=== PATIENT | female | born 1950 | race Caucasian/White ===

== ENCOUNTER 2019-02-24 15:07 | Outpatient (CLI) | payer MEDICARE, BC ==
[~2019-02-24 15:07] MED LIST: HYDR-4383 PO; ONDA4TAB6 PO
== END 2019-02-24 16:14 | disposition home or self-care (01) ==
LOC: ORTHO 15:07
PROVIDERS: ATTEND Orthopaedic Surgery
DX: S52.572D Other intraarticular fracture of lower end of left radius, subsequent encounter for closed fracture with routine healing (principal); S52.612D Displaced fracture of left ulna styloid process, subsequent encounter for closed fracture with routine healing; G56.02 Carpal tunnel syndrome, left upper limb; X58.XXXD Exposure to other specified factors, subsequent encounter
CPT/HCPCS: 73110; G0463

== ENCOUNTER 2019-03-24 15:23 | Outpatient (CLI) | payer MEDICARE, BC | END 2019-03-24 16:30 | disposition home or self-care (01) | LOC: ORTHO 15:23 | PROVIDERS: ATTEND Orthopaedic Surgery | DX: S52.592D Other fractures of lower end of left radius, subsequent encounter for closed fracture with routine healing (principal); X58.XXXD Exposure to other specified factors, subsequent encounter | CPT/HCPCS: 73110; G0463 ==

== ENCOUNTER 2019-04-21 15:00 | Outpatient (CLI) | payer MEDICARE, BC | END 2019-04-21 16:20 | disposition home or self-care (01) | LOC: ORTHO 15:00 | PROVIDERS: ATTEND Orthopaedic Surgery | DX: S52.592D Other fractures of lower end of left radius, subsequent encounter for closed fracture with routine healing (principal); M18.12 Unilateral primary osteoarthritis of first carpometacarpal joint, left hand; X58.XXXD Exposure to other specified factors, subsequent encounter | CPT/HCPCS: 73110; G0463 ==

== ENCOUNTER 2023-03-31 18:37 | Observation (INO) | payer MEDICARE, OTHER ==
[~2023-03-31] VITALS: Ht 160 cm; Wt 61.4 kg
[2023-03-31 20:39] LABS: BASOPHILS # (AUTO) 0.1 X10'3 (0-0.2); BASOPHILS % (AUTO) 0.5 % (0-1); EOSINOPHILS # (AUTO) 0.1 X10'3 (0-0.9); EOSINOPHILS % (AUTO) 1.2 % (0-6); HEMATOCRIT 45.6 % (35.0-45.0); HEMOGLOBIN 15.4 g/dl (12.0-16.0); LYMPHOCYTES # (AUTO) 2.7 X10'3 (1.1-4.8); LYMPHOCYTES % (AUTO) 26.2 % (21-51); MEAN CORPUSCULAR HEMOGLOBIN 29.4 PG (27.0-31.0); MEAN CORPUSCULAR HGB CONC 33.7 g/dL (33.0-36.5); MEAN CORPUSCULAR VOLUME 87.4 FL (78-98); MEAN PLATELET VOLUME 7.5 FL (7.4-10.4); MONOCYTES # (AUTO) 0.9 X10'3 (0-0.9); NEUTROPHILS # (AUTO) 6.5 X10'3 (1.8-7.7); NEUTROPHILS % (AUTO) 63.1 % (42-75); PLATELET COUNT 331 X10'3 (140-440); RED BLOOD COUNT 5.22 X10'6 (4.20-5.60); RED CELL DISTRIBUTION WIDTH 14.2 % (11.5-14.5); WHITE BLOOD COUNT 10.3 X10'3 (4.5-11.0)
[2023-03-31 20:46] LABS: ALANINE AMINOTRANSFERASE 27 U/L (12-78); ALBUMIN 3.8 G/DL (3.4-5.0); ALKALINE PHOSPHATASE 101 IU/L (46-116); ANION GAP 11 (8-16); ASPARTATE AMINO TRANSFERASE 16 U/L (10-37); BILIRUBIN,TOTAL 0.2 MG/DL (0.1-1.0); BLOOD UREA NITROGEN 25 MG/DL (7-18); BUN/CREATININE RATIO 24.8 (10.0-20.0); CALCIUM 9.4 MG/DL (8.5-10.1); CHLORIDE 105 MMOL/L (99-107); CREATININE 1.01 MG/DL (0.40-0.90); GLUCOSE 123 MG/DL (70-104); POTASSIUM 4.1 MMOL/L (3.5-5.1); SODIUM 140 MMOL/L (135-145); TOTAL CARBON DIOXIDE 24.2 MMOL/L (24-32); TOTAL PROTEIN 7.6 G/DL (6.4-8.2); eCRCL 42 ML/MIN; eGFR 54 ML/MIN
[2023-03-31 20:53] LABS: PRO BRAIN NATRIURETIC PEPTIDE 94 PG/ML (0-125)
[2023-03-31] MEDS ORDERED: aspirin 325mg tablet PO ONE (21:30)
--- NOTE | 2023-03-31 22:24 | NUR ---
PT REFUSED ASPRIN
[2023-03-31] MEDS ORDERED: potassium Cl 40MEQ/1/2NS 520ml 520 ML IV PRN (22:55)
[2023-03-31] MEDS ORDERED: PERFLUTREN PROTEIN-A MICROSPHR (Optison) 0.22 MG/ML 3ML VIAL IV ONE (22:55)
[2023-03-31] MEDS ORDERED: magnesium 2GM in 50ml NS 50 ML IV PRN (22:55)
[2023-03-31] MEDS ORDERED: magnesium Cl slow-release 64mg tablet PO PRN (22:55)
[2023-03-31] MEDS ORDERED: potassium Cl 20 mEq SR tablet PO PRN ×2 (22:55)
[2023-03-31] MEDS ORDERED: magnesium 4gm in 100ml NS 100 ML IV PRN (22:55)
[2023-03-31] MEDS ORDERED: regadenoson 0.4mg/5ml syringe IV PRN (23:00)
[2023-03-31] MEDS ORDERED: metoprolol tartrate 1mg/ml inj IV PRN (23:00)
[2023-03-31] MEDS ORDERED: aminophylline 250mg/10ml inj. IV PRN (23:00)
--- NOTE | 2023-03-31 23:40 | NUR ---
PT PLACED ONTO IN-PATIENT BED
[2023-04-01] VITALS (11 sets, daily range): BP systolic 141–195; BP diastolic 59–86; PULSE 85–109; RESP 14–18; TEMP 98.5; O2SAT 96–100
[2023-04-01 03:34] LABS: BASOPHILS # (AUTO) 0.1 X10'3 (0-0.2); BASOPHILS % (AUTO) 1.3 % (0-1); EOSINOPHILS # (AUTO) 0.1 X10'3 (0-0.9); EOSINOPHILS % (AUTO) 0.9 % (0-6); HEMATOCRIT 43.1 % (35.0-45.0); HEMOGLOBIN 14.4 g/dl (12.0-16.0); LYMPHOCYTES % (AUTO) 32.8 % (21-51); MEAN CORPUSCULAR HEMOGLOBIN 29.2 PG (27.0-31.0); MEAN CORPUSCULAR HGB CONC 33.3 g/dL (33.0-36.5); MEAN CORPUSCULAR VOLUME 87.5 FL (78-98); MEAN PLATELET VOLUME 7.5 FL (7.4-10.4); MONOCYTES # (AUTO) 0.8 X10'3 (0-0.9); MONOCYTES % (AUTO) 8.3 % (2-12); NEUTROPHILS # (AUTO) 5.2 X10'3 (1.8-7.7); NEUTROPHILS % (AUTO) 56.7 % (42-75); PLATELET COUNT 279 X10'3 (140-440); RED BLOOD COUNT 4.92 X10'6 (4.20-5.60); RED CELL DISTRIBUTION WIDTH 14.6 % (11.5-14.5); WHITE BLOOD COUNT 9.2 X10'3 (4.5-11.0)
[2023-04-01 03:47] LABS: ALBUMIN 3.4 G/DL (3.4-5.0); ANION GAP 9 (8-16); BLOOD UREA NITROGEN 18 MG/DL (7-18); BUN/CREATININE RATIO 23.4 (10.0-20.0); CHLORIDE 109 MMOL/L (99-107); CREATININE 0.77 MG/DL (0.40-0.90); GLUCOSE 111 MG/DL (70-104); MAGNESIUM 2.2 MG/DL (1.5-2.4); POTASSIUM 3.5 MMOL/L (3.5-5.1); SODIUM 143 MMOL/L (135-145); TOTAL CARBON DIOXIDE 25.1 MMOL/L (24-32); eCRCL 55 ML/MIN; eGFR 74 ML/MIN
--- NOTE | 2023-04-01 07:22 | NUR ---
Patient just arrived to the floor at this time and made familiar with room, call light given to the patient at this time.
--- NOTE | 2023-04-01 07:22 | NUR ---
Patient in room ED 13. I have received report from Nguyen ORTIZ and had the opportunity to ask questions and assume patient care.
[2023-04-01] MEDS ORDERED: K and/or MAG REPLACEMENT MC SCH (08:00)
[2023-04-01] MEDS ORDERED: aspirin 81mg, enteric-coated 1 TAB TABLET.DR PO ONE (08:30)
[2023-04-01 08:59] LABS: CHOL/HDL RATIO 3.7 (0.00-4.99); CHOLESTEROL 183 MG/DL (0-200); HDL CHOLESTEROL 50 MG/DL (35-60); LDL CHOLESTEROL 111 MG/DL (50-100); THYROID STIMULATING HORMONE 1.29 ulU/ml (0.34-4.50); TRIGLYCERIDES 41 MG/DL (20-135)
[2023-04-01 09:17] LABS: HEMOGLOBIN A1C 5.8 % (4.5-6.2)
--- NOTE | 2023-04-01 10:53 | NUR ---
Patient refused MRSA nasal swab at this time.
[2023-04-01] MEDS ORDERED: NO HOME MEDS ×2 (11:05→12:55)
[2023-04-01] MEDS ORDERED: NOR5T PO (13:10)
--- NOTE | 2023-04-01 14:35 | NUR ---
Patient discharged home with all of belongings at the time of discharge. Patient educated on new medications and the importance of follow up and establishing with a primary care physician at the time of discharge. Patient IV taken out at the time of discharge with canula intact and whole upon inspection. Patient walked out of hospital with family at discharge and was transported home in private car.
[2023-04-02] MEDS ORDERED: amLODIPine 5mg tablet PO SCH (08:00)
[2023-04-02] MEDS ORDERED: aspirin 81mg, enteric-coated 1 TAB TABLET.DR PO SCH (08:00)
== END 2023-04-01 14:15 | disposition home or self-care (01) ==
LOC: ER 18:37 → ED HOLD 22:55 → PCU 3S 04-01 07:29
PROVIDERS: ADMIT Internal Medicine; ATTEND Family Medicine
DX: F41.0 Panic disorder [episodic paroxysmal anxiety] (principal); R07.89 Other chest pain; E78.5 Hyperlipidemia, unspecified; Z79.899 Other long term (current) drug therapy
CPT/HCPCS: 36415; 71045; 78452; 80048; 80053; 80061; 83036; 83735; 83880; 84443; 84484; 85025; 93005; 93017; 93306; 99285; A9500; G0378; J2785